=== PATIENT | male | born 1940 | race Caucasian/White ===

== ENCOUNTER 2019-02-10 13:56 | Day surgery (SDC) | payer BC ==
[2019-02-10 14:37] VITALS: RESP 16; TEMP 97.6
[2019-02-10] MEDS ORDERED: BUPIVACAINE HCL 0.25% MPF 30 ML SOL INFIL ONE (14:41)
[2019-02-10] MEDS ORDERED: TRIAMCINOLONE ACETONIDE 40 MG/ML SUS ONE (14:41)
[2019-02-10 15:25] VITALS: BP 106/66; PULSE 47; O2SAT 94
== END 2019-02-10 15:25 | disposition home or self-care (01) | DRG 554 ==
LOC: SURG 13:56
PROVIDERS: ATTEND Nurse Anesthetist, Certified Registered
DX: M12.9 Arthropathy, unspecified (principal)
CPT/HCPCS: J3300

== ENCOUNTER 2019-03-29 09:27 | Day surgery (SDC) | payer BC ==
[2019-03-29] MEDS ORDERED: TRIAMCINOLONE ACETONIDE 40 MG/ML SUS ONE (10:14)
[2019-03-29] MEDS ORDERED: BUPIVACAINE HCL 0.25% MPF 30 ML SOL INFIL ONE (10:15)
[2019-03-29] MEDS ORDERED: BUPIVACAINE HCL 0.5% MPF 10 ML SOL ONE (10:17)
[2019-03-29 10:51] VITALS: PULSE 51
[2019-03-29 11:02] VITALS: BP 130/72; RESP 18; TEMP 97.5; O2SAT 98
== END 2019-03-29 11:20 | disposition home or self-care (01) | DRG 554 ==
LOC: SURG 09:27
PROVIDERS: ATTEND Nurse Anesthetist, Certified Registered
DX: M12.88 Other specific arthropathies, not elsewhere classified, other specified site (principal); M70.72 Other bursitis of hip, left hip
CPT/HCPCS: J3300